=== PATIENT | male | born 1950 | race Caucasian/White ===

== ENCOUNTER 2018-10-06 04:16 | Inpatient (IN) | payer SELFPAY ==
[~2018-10-06] VITALS: Ht 172.7 cm; Wt 72.3 kg
[2018-10-06 04:23] VITALS: BP 150/108
--- NOTE | 2018-10-06 04:23 | NUR ---
to bed # 11ambulatory , report given to Elton Gross
--- NOTE | 2018-10-06 04:31 | NUR ---
PT BIB SELF FOR SOB AND CP X3 DAYS. PT REPORTS DULL CP AT 5/10 THAT STARTS MIDLINE CHEST, RADIATES TO R CHEST AND INCREASES WITH PHYSICAL ACTIVITY. PT IS HYPERTENSIVE WITH BP AT 159/108, SINUS TACH. PT REPORTS LETHARGY, HEADACHE, BLURRY VISION AND NAUSEA AND VOMITING. PT REPORTS SOB THAT INCREASES WITH PHYSICAL ACTIVITY. RR SYMMETRICAL, NON LABORED, WITH BREATH SOUNDS CLEAR THROUGHOUT, AND O2 SAT AT 98% ON ROOM AIR. ER MD TO SEE PT. SAFETY PECAUTIONS IN PLACE, WILL CONTINUE TO MONITOR. MEDHX: HTN, GA, HLD, CAD RX: ATROVASTATIN, HYDROCHLOROTHIAZIDE, TAMSULOSIN, ASPIRIN, AND CARVEDILOL.
--- NOTE | 2018-10-06 04:32 | NUR ---
EKG PERFORMED AT BEDSIDE. PT COVERED IN GOWN DURING PROCEDURE
[2018-10-06] MEDS ORDERED: TAMS0.4C96 PO (04:45)
[2018-10-06] MEDS ORDERED: NITROGLYCERIN 0.4 MG TAB SL ONE (04:45)
[2018-10-06] MEDS ORDERED: ASPIRIN 325 MG TAB PO ONE (04:45)
[2018-10-06] MEDS ORDERED: ATOR40TA40 PO (04:45)
[2018-10-06] MEDS ORDERED: ASPI325T49 PO (04:47)
[2018-10-06] MEDS ORDERED: CARV12.5 PO (04:47)
[2018-10-06] MEDS ORDERED: ORE25 PO (04:49)
--- NOTE | 2018-10-06 05:02 | NUR ---
X-RAY AT BEDSIDE AT THIS TIME.
[2018-10-06 05:20] LABS: BASOPHILS % (AUTO) 0.3 % (0.0-2.0); EOSINOPHILS # (AUTO) 0.1 K/uL (0-0.4); EOSINOPHILS % (AUTO) 0.7 % (0.0-4.0); HEMATOCRIT 41.9 % (36-52); HEMOGLOBIN 14.4 g/dL (12.0-18.0); LYMPHOCYTES # (AUTO) 2.2 K/uL (2.0-11.5); LYMPHOCYTES % (AUTO) 24.1 % (20.5-51.1); MEAN CORPUSCULAR HEMOGLOBIN 29 pg (27-31); MEAN CORPUSCULAR HGB CONC 34 g/dL (33-37); MEAN CORPUSCULAR VOLUME 84.8 fL (80-94); MONOCYTES # (AUTO) 1.1 K/uL (0.8-1.0); MONOCYTES % (AUTO) 11.8 % (1.7-9.3); NEUTROPHILS # (AUTO) 5.8 K/uL (1.8-7.7); NEUTROPHILS % (AUTO) 63.1 % (42.2-75.2); PLATELET COUNT (AUTO) 220 K/uL (140-450); RED BLOOD CELL COUNT(AUTO) 4.94 MIL/uL (4.20-6.10); RED CELL DISTRIBUTION WIDTH 13.2 % (11.6-13.7); WHITE BLOOD COUNT (AUTO) 9.2 K/uL (4.8-10.8)
[2018-10-06] MEDS ORDERED: METOPROLOL 50 MG TAB PO ONE (05:20)
[2018-10-06 05:30] LABS: ALBUMIN 3.8 g/dL (3.4-5.0); ANION GAP 9.7 (8-16); CARBON DIOXIDE 27.1 mmol/L (21-32); CREATININE 1.3 mg/dL (0.7-1.3); TOTAL BILIRUBIN 0.5 mg/dL (0.0-1.0)
[2018-10-06 05:32] LABS: POTASSIUM 2.8 mmol/L (3.5-5.1)
[2018-10-06] MEDS ORDERED: POTASSIUM CHLORIDE 10 MEQ TABER PO ONE (05:35)
[2018-10-06 05:37] LABS: PROTHROMBIN TIME 10.1 secs (10.8-13.4)
[2018-10-06] MEDS ORDERED: HYDROcodone/APAP 5/325 MG 1 TAB TAB PO PRN (05:40)
[2018-10-06] MEDS ORDERED: DOCUSATE SODIUM 100 MG GELCAP PO PRN (05:40)
[2018-10-06] MEDS ORDERED: LORazepam 2 MG/ML VIAL IM/IVP PRN (05:40)
[2018-10-06] MEDS ORDERED: MORPHINE SULFATE 2 MG/ML SYR IVP PRN (05:40)
[2018-10-06] MEDS ORDERED: NITROGLYCERIN 0.4 MG TAB SL PRN (05:40)
[2018-10-06] MEDS ORDERED: ONDANSETRON 4 MG/2 ML VIAL IM/IVP PRN (05:40)
[2018-10-06] MEDS ORDERED: ACETAMINOPHEN 325 MG TAB PO PRN (05:40)
--- NOTE | 2018-10-06 07:00 | NUR ---
RECEIVED PATIENT FROM AM NURSE. RESPIRATION EVEN AND UNLABOR ON ROOM AIR. AOX4. C/O CHEST PAIN AND SHORTNESS OF BREATH. NO DISTRESS OR SHORTNESS OF BREATH NOTED AT THIS TIME. IV PATENT AND INTACT. SKIN IS WARM, DRY, AND INTACT. PLAN OF CARE WAS DISCUSS. ORIENT PATIENT TO ROOM, STAFF, AND CALL LIGHT. BED IS IN LOW POSITION. CALL LIGHT WITHIN REACH. Addendum: 10/06/18 at 1551 by Orlando Ku RN CORRECTION : PATIENT DENIED CHEST PAIN AND SOB. NO DISTRESS NOTED AT THIS TIME
--- NOTE | 2018-10-06 07:00 | NUR ---
Patient will be admitted to care of DR WORLEY. Admited to TELE VIA GURNEY WITH VSS. Will go to room 121A. Belongings list completed. Report to ADRIENNE.
[2018-10-06 07:40] LABS: CHOL/HDL RATIO 1.7 (1-4.5); MAGNESIUM 1.5 mg/dL (1.8-2.4); PHOSPHORUS 3.8 mg/dL (2.5-4.9); THYROID STIMULATING HORMONE 1.49 uIU/mL (0.34-3.74)
[2018-10-06 08:00] VITALS: BP 151/97
[2018-10-06] MEDS ORDERED: POTASSIUM CHLORIDE 40 MEQ, LIDOCAINE MPF 1% - 5 mL VIAL 25 MG in NACL 0.9% 250 ML IV SCH (08:00)
--- NOTE | 2018-10-06 08:00 | NUR ---
PATIENT IS SLEEPING COMFORTABLY, RESPIRATION EVEN AND UNLABOR ON ROOM AIR. CALL LIGHT WITHIN REACH
[2018-10-06] MEDS: NACL 0.9% 1,000 ML IV SCH (08:10)
[2018-10-06] MEDS ORDERED: HYDROCHLOROTHIAZIDE 25 MG TAB PO SCH (09:00)
[2018-10-06] MEDS: ASPIRIN 81 MG TAB.CHEW PO SCH (09:19)
[2018-10-06] MEDS: LISINOPRIL 5 MG TAB PO SCH (09:20)
[2018-10-06] MEDS: CARVEDILOL 12.5 MG TAB PO SCH ×2 (09:21→16:21)
--- NOTE | 2018-10-06 10:00 | NUR ---
PATIENT WAS AWAKE, ALERT. RESPIRATION EVEN, UNLABOR ON ROOM AIR. NO DISTRESS NOTED AT THIS TIME. MEDS WERE GIVEN PER ORDER. US TECH WAS AT BEDSIDE. CALL LIGHT WITHIN REACH
--- NOTE | 2018-10-06 10:10 | NUR ---
RECEIVED PT IN STABLE CONDITION FROM AM NURSE. AWAKE,ALERT AND ORIENTED X4. AMBULATORY. ON TELE MONITOR -SR. WITH NO C/O ANY DISCOMFORT NOR PAIN NOTED. HAS IVF INFUSING WELL ON THE RT AC G#20. CLEAR AND PATENT. PLAN OF CARE DISCUSSED AND VERBALIZED UNDERSTANDING. BED ON LOW POSITION. CALL LIGHT AND URINAL PLACED WITHIN EASY REACH. WILL CONITNUE TO MONITOR. Addendum: 10/06/18 at 2003 by Jaz Montoya RN CANCEL ABOVE NOTES, WRONG TIME.
[2018-10-06 12:00] VITALS: BP 173/91
--- NOTE | 2018-10-06 12:00 | NUR ---
PATIENT IS ALERT AWAKE RESPIRATION EVEN AND UNLABOR ON ROOM AIR. LYING IN BED WATCHING TV NO DISTRESS NOTED. CALL LIGHT WITHIN REACH
[2018-10-06 13:13] LABS: APPEARANCE,URINE CLEAR (CLEAR); BILIRUBIN,URINE NEGATIVE (NEGATIVE); BLOOD, URINE NEGATIVE (NEGATIVE); COLOR,URINE YELLOW (YELLOW); LEUKOCYTE ESTERASE ,URINE NEGATIVE (NEGATIVE); NITRITE, URINE NEGATIVE (NEGATIVE); PH,URINE 6.5 (5.0-9.0); UGLUCOSE NEGATIVE (NEGATIVE)
[2018-10-06 13:18] LABS: BARBITURATE, URINE NEG. ng/ml (NEG <=200); BENZODIAZEPINE, URINE NEG. ng/mL (NEG <=200); CANNABINOID, URINE NEG. ng/mL (NEG <=50); COCAINE, URINE NEG. ng/mL (NEG <=300); OPIATE, URINE NEG. ng/mL (NEG <=2000); PHENCYCLIDINE SCREEN,URINE NEG. ng/mL (NEG <=25)
[2018-10-06 13:29] LABS: ANION GAP 11.2 (8-16); CARBON DIOXIDE 25.4 mmol/L (21-32); CREATININE 1.2 mg/dL (0.7-1.3); POTASSIUM 3.6 mmol/L (3.5-5.1)
--- NOTE | 2018-10-06 14:00 | NUR ---
PATIENT WAS SLEEPING COMFORTABLY. RESPIRATION EVEN, UNLABOR ON ROOM AIR. NO DISTRESS NOTED AT THIS TIME
--- NOTE | 2018-10-06 14:21 | NUR ---
DR. DOYLE WAS MADE AWARE OF PATIENT'S MAG 1.5, AWAITING FOR ORDERS
[2018-10-06 16:00] VITALS: BP 125/83
[2018-10-06] MEDS ORDERED: MAGNESIUM OXIDE 400 MG TAB PO SCH (16:00)
--- NOTE | 2018-10-06 16:00 | NUR ---
PATIENT IS AWAKE, ALERT, RESPIRATION EVEN AND UNLABOR ON ROOM AIR. VITAL SIGN STABLE. NO DISTRESS NOTED AT THIS TIME.
--- NOTE | 2018-10-06 18:00 | NUR ---
PATIENT IS SLEEPING COMFORTABLY, RESPIRATION EVEN AND UNLABOR ON ROOM AIR. NO DISTRESS NOTED. IV PATENT AND INTACT. BED IS IN LOW POSITION CALL LIGHT WITHIN REACH
--- NOTE | 2018-10-06 19:06 | NUR ---
ENDORSED REPORT TO NIGHT NURSE FOR CONTINUITY OF CARE. PATIENT IS STABLE.
--- NOTE | 2018-10-06 19:10 | NUR ---
RECEIVED PT IN STABLE CONDITION FROM AM NURSE. AWAKE,ALERT AND ORIENTED X4. AMBULATORY. ON TELE MONITOR -SR. WITH NO C/O ANY DISCOMFORT NOR PAIN NOTED. HAS IVF INFUSING WELL ON THE RT AC G#20. CLEAR AND PATENT. PLAN OF CARE DISCUSSED AND VERBALIZED UNDERSTANDING. BED ON LOW POSITION. CALL LIGHT AND URINAL PLACED WITHIN EASY REACH. WILL CONITNUE TO MONITOR.
[2018-10-06 19:47] VITALS: BP 125/80
[2018-10-06] MEDS ORDERED: TAMSULOSIN 0.4 MG CAP PO SCH (21:00)
[2018-10-06] MEDS ORDERED: ATORVASTATIN 20 MG TAB PO SCH (21:00)
--- NOTE | 2018-10-06 21:07 | NUR ---
PT HAD ALL HIS NIGHT MEDICATIONS. NO C/O ANY DISCOMFORT NOR PAIN NOTED.
--- NOTE | 2018-10-06 22:25 | NUR ---
MADE ROUNDS PT ASLEEP. NO S/S OF ANY DISTRESS /PAIN NOR DISCOMFORT NOTED.
[2018-10-06 23:51] VITALS: BP 125/74
--- NOTE | 2018-10-07 02:00 | NUR ---
PT ASLEEP. NO S/S OF ANY PAIN NOR DISCOMFORT NOTED. WILL CONTINUE TO MONITOR.
[2018-10-07 03:50] VITALS: BP 130/79
--- NOTE | 2018-10-07 04:17 | NUR ---
PT GAVE AUTHORIZATION FOR MEDICAL RECORDS FROM [facility] . IT WAS FAXED .
[2018-10-07] MEDS: NACL 0.9% 1,000 ML IV SCH (05:40)
--- NOTE | 2018-10-07 05:40 | NUR ---
[facility] ALREADY FAXED PT'S MEDICAL RECORD OF PT FROM SEP VISIT TO THEM. COPIES IN CHART.
--- NOTE | 2018-10-07 06:25 | NUR ---
DR. PICKENS ,RESIDENT MD, MADE AWARE ABOUT THE MEDICAL RECORDS OF PT FROM [facility] ALREADY FAXED AND ARE IN CHART.
--- NOTE | 2018-10-07 07:05 | NUR ---
ENDORSED PT IN STABLE CONDITION TO AM NURSE.
[2018-10-07 07:18] LABS: BASOPHILS % (AUTO) 0.5 % (0.0-2.0); EOSINOPHILS # (AUTO) 0.1 K/uL (0-0.4); EOSINOPHILS % (AUTO) 1.5 % (0.0-4.0); HEMATOCRIT 43.7 % (36-52); HEMOGLOBIN 14.6 g/dL (12.0-18.0); LYMPHOCYTES # (AUTO) 2.3 K/uL (2.0-11.5); LYMPHOCYTES % (AUTO) 37.1 % (20.5-51.1); MEAN CORPUSCULAR HEMOGLOBIN 29 pg (27-31); MEAN CORPUSCULAR HGB CONC 33 g/dL (33-37); MEAN CORPUSCULAR VOLUME 86.2 fL (80-94); MONOCYTES # (AUTO) 0.7 K/uL (0.8-1.0); MONOCYTES % (AUTO) 11.8 % (1.7-9.3); NEUTROPHILS % (AUTO) 49.1 % (42.2-75.2); PLATELET COUNT (AUTO) 199 K/uL (140-450); RED BLOOD CELL COUNT(AUTO) 5.07 MIL/uL (4.20-6.10); RED CELL DISTRIBUTION WIDTH 13.2 % (11.6-13.7); WHITE BLOOD COUNT (AUTO) 6.1 K/uL (4.8-10.8)
--- NOTE | 2018-10-07 07:20 | NUR ---
RECEIVED ENDORSEMENT FROM PM LACIE DELEON. PATIENT IS A&Ox4, ABLE TO MAKE NEEDS KNOWN. AMBULATORY. ON TELE MONITOR. NO SOB OR RESPIRATORY DISTRESS NOTED. IV SITE ON RIGHT AC, 20 GAUGE, NO S/SX OF SWELLING, REDNESS OR INFECTION NOTED. CLEAR AND PATENT. PLAN OF CARE DISCUSSED AND VERBALIZED UNDERSTANDING. BED IN LOW POSITION. CALL LIGHT AND URINAL PLACED WITHIN EASY REACH. WILL CONTINUE TO MONITOR.
[2018-10-07 07:27] LABS: CARBON DIOXIDE 30.6 mmol/L (21-32); CREATININE 1.2 mg/dL (0.7-1.3); POTASSIUM 3.6 mmol/L (3.5-5.1)
[2018-10-07 07:34] LABS: MAGNESIUM 1.6 mg/dL (1.8-2.4); PHOSPHORUS 2.9 mg/dL (2.5-4.9)
[2018-10-07 08:00] VITALS: BP 135/85
[2018-10-07] MEDS ORDERED: NITR0.4T1 SL (08:19)
[2018-10-07] MEDS ORDERED: LISI-424 PO (08:19)
--- NOTE | 2018-10-07 08:20 | NUR ---
PATIENT HAS BEEN SCREENED AND CATEGORIZED MODERATE NUTRITION RISK. PATIENT WILL BE SEEN WITHIN 3-5 DAYS OF ADMISSION. 10/08/18 10/10/[address]
[2018-10-07] MEDS: LISINOPRIL 5 MG TAB PO SCH (08:29)
[2018-10-07] MEDS: CARVEDILOL 12.5 MG TAB PO SCH (08:29)
[2018-10-07] MEDS: ASPIRIN 81 MG TAB.CHEW PO SCH (08:30)
[2018-10-07] MEDS ORDERED: MAG SULF 2000 MG/WATER PREMIX 50 ML IV SCH (10:00)
[2018-10-07] MEDS ORDERED: PNEUMOCOCCAL VACCINE 23 MCG/0.5 ML VIAL IMVAC SCH (11:50)
[2018-10-07 12:00] VITALS: BP 124/79
--- NOTE | 2018-10-07 12:20 | NUR ---
PT EATING LUNCH INDEPENDENTLY, NO S/S OF ACUTE DISTRESS NOTED ON ROOM AIR.
--- NOTE | 2018-10-07 12:30 | NUR ---
OBTAINED PT'S CELL NUMBER, [phone]. GIVEN TO DR CAIN. DR CAIN SAID SHE WILL GIVE TO PHARMACY WHO WILL CALL PT REGARDING HIS RESIDENCE AND GIVE PT THE MED AT WHERE HE LIVES.
--- NOTE | 2018-10-07 13:10 | NUR ---
PT DENIES ANY CHEST PAIN. NO S/S OF ACUTE DISTRESS ON ROOM AIR.
[2018-10-07 13:49] LABS: ANION GAP 13.2 (8-16); CARBON DIOXIDE 26.9 mmol/L (21-32); POTASSIUM 4.1 mmol/L (3.5-5.1)
--- NOTE | 2018-10-07 13:55 | NUR ---
DISCHARGE INSTRUCTIONS GIVEN, MEDICATION TEACHING PROVIDED. PT VERBALIZED UNDERSTANDING. REMOVED IV, TIP INTACT. PRESSURE APPLIED. PATIENT WAS GIVEN 1 BOTTLE OF LISINOPRIL, TO TAKE 1 TAB DAILY ON TOP OF OTHER HOME MEDS, HOLD HYDROCHLOROTHIAZIDE. PATIENT PROVIDED WITH A LIST OF SHELTERS, TWO BUS PASSES AND A BAG OF SANDWICHES AND SNACKS. PATIENT DRESSED HIMSELF, REMOVED TELE BOX. PATIENT WAS ABLE TO AMBULATE OUT OF THE UNIT.
--- NOTE | 2018-10-07 13:58 | NUR ---
HOME MEDS STORED IN PHARM WAS RETURNED TO PT.
--- NOTE | 2018-10-07 14:23 | NUR ---
[employer] Inspector Note: Late entry for earlier today: I met with patient at bedside. He stated he is planning to go to a homeless [facility] in [place] and his nurse LACIE Morrissey provided him with a list of homeless shelters, food [place], and room and boards. He reported he does not need any additional community resources. LACIE Morrissey informed me patient has weather appropriate clothing.
== END 2018-10-07 13:55 | disposition home or self-care (01) | DRG 309 ==
LOC: MED 04:16 → MTU 05:40
PROVIDERS: ADMIT General Practice; ATTEND General Practice
PROC: 3E0234Z Introduction of Serum, Toxoid and Vaccine into Muscle, Percutaneous Approach (ICD-10-PCS; principal; 2018-10-07)
DX: I48.91 Unspecified atrial fibrillation (principal); E87.1 Hypo-osmolality and hyponatremia; E83.42 Hypomagnesemia; N28.1 Cyst of kidney, acquired; I25.2 Old myocardial infarction; I10 Essential (primary) hypertension; E87.6 Hypokalemia; N40.0 Benign prostatic hyperplasia without lower urinary tract symptoms; Z95.5 Presence of coronary angioplasty implant and graft; Z79.82 Long term (current) use of aspirin; Z79.899 Other long term (current) drug therapy; Z90.49 Acquired absence of other specified parts of digestive tract; Z82.49 Family history of ischemic heart disease and other diseases of the circulatory system; Z91.19 Patient's noncompliance with other medical treatment and regimen; Z23 Encounter for immunization
CPT/HCPCS: 36415; 71045; 76705; 80048; 80053; 80305; 81003; 83036; 83690; 83735; 83880; 84100; 84443; 84484; 85025; 85610; 85730; 87081; 90732; 93005; 93970; 99285; J1644; J2001; J3475; J3480; J7030; Q0092